=== PATIENT | male | born 1955 | race Caucasian/White ===

== ENCOUNTER 2022-09-17 16:07 | Emergency (ER) | payer MEDICARE, SELFPAY ==
[2022-09-17 16:13] VITALS: BP 143/87; PULSE 96; RESP 16; TEMP 36.7; O2SAT 99; BMI 203.6
--- NOTE | 2022-09-17 16:30 | XR_ITS ---
The [address] [address] Patient Name: BOBBI VINSON MRN: [id number] date: 1955 Sex: M Assigned Patient Location: ER Current Patient Location: ER Accession/Order Number: [id number] Exam Date: 09/17/2022 16:44 Report Date: 09/17/2022 17:11 At the request of: ESTRELLA NICHOLS Procedure: XR finger RT min 2V EXAM: XR finger RT min 2V HISTORY: chainsaw laceration COMPARISON: None. TECHNIQUE: 3 views FINDINGS: IMPRESSION: No visualized radiodense foreign body. No fracture, dislocation, subluxation or osseous lesion. Joint spaces are unremarkable for patient's age. Electronically authenticated by: VERONICA DALTON Date: 09/17/2022 17:11
--- NOTE | 2022-09-17 16:47 | ED_ITS ---
Documented by User: ROSALINO Santana 09/17/22 19:12 HPI - Extremity Injury (Upper) General Chief Complaint: Extremity Injury, Upper Stated Complaint: CUT FINGER W/ CHAINSAW Time Seen by Provider: 09/17/22 16:27 Source: patient Mode of arrival: walk-in Limitations: no limitations History of Present Illness HPI narrative: patient is a 67-year-old male who presents to the Emergency Room with concerns of laceration to the right index finger. Patient states he was using a small chainsaw when it struck his index finger over the PIP joint. Patient states this occurred around 10 AM and he presents to the Emergency Room 5-6 hours later's as the area continues to bleed. He is unsure of his last tetanus, he has a smaller abrasion to the left index finger. 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 Patient denies any numbness or tingling. He appears in no distress has been applying pressure to the wound since injury at 10 AM. Patient is right-hand dominant MD complaint: injury to: Reports right Other Extremity Injury: Right: fingers (index finger PIP joint dorsal aspect. ) Hand dominance: right Place: Reports home Severity: moderate (declines pain meds here, requesting rx sent to pharmacy) Relieving factors: Reports none Exacerbating factors: Reports movement of extremity Context: Reports laceration Treatments prior to arrival: Reports bandage Related Data Previous Rx's Medication Instructions Recorded cephalexin 500 mg capsule 500 mg PO TID 7 days #21 caps 09/17/22 nabumetone 1,000 mg tablet 1,000 mg PO BID for pain #14 tabs 09/18/22 (Relafen DS) Allergies Allergy/AdvReac Type Severity Reaction Status Date / Time No Known Drug Allergies Allergy Verified 09/17/22 16:17 Review of Systems ROS Constitutional Denies: fever or chills Eyes Denies: change in vision Ears, nose, mouth, and throat Denies: throat pain or neck pain Cardiovascular Denies: chest pain or palpitations Respiratory Reports: wheezing; Denies: shortness of breath Musculoskeletal Reports: extremity pain Exam Narrative Exam Narrative: Nurse's notes and vital signs reviewed. Patient is not hypoxic. General: The patient appears well and in no apparent distress. Patient is resting comfortably on cart. Skin: Warm, dry, no pallor noted. patient has a macerated laceration to the kassie aslazar aspect of the right index finger overlying the PIP joint. Positive continuous bruising noted. Head: Normocephalic, atraumatic Eye: Normal conjunctiva Respiratory: Patient is in no distress Musculoskeletal: The right wrist shows no obvious deformity. positive complex laceration to the right index finger overlying the PIP joint dorsal aspect. Gross examination shows extensor function intact at the DIP and PIP and MCP joints. Patient able to flex fully and to a fist without difficulty. Fingers bleeding noted. There was no significant swelling noted. The patient had full ROM despite pain. slight extensor tendon disrupted suspected or capsular bundle on visual inspection The patient had tenderness noted on the PIP joint of the index finger . The patient had no tenderness in the anatomical snuff box. The patient had no pain with axial loading of the thumb. Pulses are intact at brachial and radial 2+. There was no deficit at the elbow or shoulder. The patient has normal capil nataliya refill to all distal digits. The patient has no evidence of cyanosis or mottling. The patient is able to flex and extend all digits without difficulty. Neurological: A&O x4, normal sensory, normal motor Psychiatric: Cooperative Constitutional Vital Signs, click to edit/add: Last Vital Signs Temp 98.1 F 09/17/22 16:13 Pulse 96 H 09/17/22 16:13 Resp 16 09/17/22 16:13 BP 143/87 H 09/17/22 16:13 Pulse Ox 99 09/17/22 16:13 O2 Del Method Room Air 09/17/22 16:13 Course Vital Signs Vital signs: Vital Signs Temperature 98.1 F 09/17/22 16:13 Pulse Rate 96 H 09/17/22 16:13 Respiratory Rate 16 09/17/22 16:13 Blood Pressure 143/87 H 09/17/22 16:13 Pulse Oximetry 99 09/17/22 16:13 Oxygen Delivery Method Room Air 09/17/22 16:13 Temperature 98.1 F 09/17/22 16:13 Pulse Rate 96 H 09/17/22 16:13 Respiratory Rate 16 09/17/22 16:13 Blood Pressure 143/87 H 09/17/22 16:13 Pulse Oximetry 99 09/17/22 16:13 Oxygen Delivery Method Room Air 09/17/22 16:13 MDM - Extremity Injury (Upper) MDM Narrative Medical decision making narrative: Laceration repair: Done under sterile conditions. The use of Betadine was used to prep and clean the area. Local injection with lidocaine 1% was used, approximately 2 cc. The wound was irrigated copiously with normal saline. The wound complex with skin flap/ maceration was explored there was no evidence of foreign material. light stringing of either extensor tendon or retinaculum of capsule. no effect on distal phalanx extension noted. no visible bone. The laceration was approximated with 5-0 prolene. 10 simple interrupted sutures were placed. Patient tolerated the procedure well. The patient was neurovascularly intact post. the patient had bacitracin applied to the laceration and a dry sterile dressing was place. The patient will need to follow-up in the next 10-14 days for removal. Splint Application: The patient was placed in an aluminafoam splint. The patient was neurovascularly intact post application of the splint. Procedure: XR finger RT min 2V EXAM: XR finger RT min 2V HISTORY: chainsaw laceration COMPARISON: None. TECHNIQUE: 3 views FINDINGS: IMPRESSION: No visualized radiodense foreign body. No fracture, dislocation, subluxation or osseous lesion. Joint spaces are unremarkable for patient's age. Electronically authenticated by: VERONICA DALTON Date: 09/17/2022 17:11 patient's tetanus was up-to-date, he declined medication here requested pain pills for disposition to home which she'll take once he gets home as needed. We discussed importance of ice and elevation. Patient has a complex laceration ov erlying the joint capsule of his right index finger,. The history is Plavix use, diabetes and delayed presentation with injury from a chain saw around 10 AM today. His wound was discussed with Dr. Roach around 6 PM who is agreeable to see the patient on Tuesday for follow-up and wound recheck. We discussed at length at bedside with the patient regarding wound care patient should do a dressing change on Tuesday night, continue with point to finger to avoid flexion at the PIP joint. Patient agreeable to get antibiotics filled The patient is to followup with Orthopedics Dr. Roach in next 2-3 days or to return to the emergency department should any of the signs or symptoms worsen or new symptoms develop. Patient had questions answered. The patient agrees with the following Diagnosis and Treatment plan and the patient will be discharged home. Lab Data Labs: EXAM: XR finger RT min 2V HISTORY: chainsaw laceration COMPARISON: None. TECHNIQUE: 3 views FINDINGS: IMPRESSION: No visualized radiodense foreign body. No fracture, dislocation, subluxation or osseous lesion. Joint spaces are unremarkable for patient's age. Electronically authenticated by: VERONICA DALTON Date: 09/17/2022 17:11 Discharge Plan Discharge Chief Complaint: Extremity Injury, Upper Clinical Impression: Finger laceration Qualifiers: Encounter type: initial encounter Finger: index finger Damage to nail status: without damage Laterality: right Qualified Code(s): S61.210A - Laceration without foreign body of right index finger without damage to nail, initial encounter Patient Disposition: Home, Self-Care Time of Disposition Decision: 19:07 Condition: Good Mode of Transportation: Private Vehicle Prescriptions / Home Meds: New cephalexin 500 mg capsule 500 mg PO TID 7 Days Qty: 21 0RF Relafen DS 1,000 mg tablet 1,000 mg PO BID Qty: 14 0RF Instructions: Finger Laceration (ED) Additional Instructions: gently clean laceration once a day starting on Tuesday evening with 50-50 mix of hydrogen peroxide and water using a Q-tip, do not saturate the wound. Do not submerge the wound. Reapply gauze sterile dressing and finger splint. Do not lift push or pull with right hand pending follow-up with orthopedics contact Dr. Roach's office on Tuesday for same day appointment for evaluation Stand Alone Forms: Portal Instructions Referrals: DEMARCO FIELDS [Primary Care Provider] - 1 week Wan Roach MD [Physician] - As soon as possible Discharge Date/Time: 09/17/22 19:26 Documented by User: Ирина Zhao MD 09/20/22 07:58 HPI - Extremity Injury (Upper) General Chief Complaint: Extremity Injury, Upper Stated Complaint: CUT FINGER W/ CHAINSAW Time Seen by Provider: 09/17/22 16:27 Related Data Previous Rx's Medication Instructions Recorded cephalexin 500 mg capsule 500 mg PO TID 7 days #21 caps 09/17/22 nabumetone 1,000 mg tablet 1,000 mg PO BID for pain #14 tabs 09/18/22 (Relafen DS) Allergies Allergy/AdvReac Type Severity Reaction Status Date / Time No Known Drug Allergies Allergy Verified 09/17/22 16:17 Exam Constitutional Vital Signs, click to edit/add: Last Vital Signs Temp 98.1 F 09/17/22 16:13 Pulse 96 H 09/17/22 16:13 Resp 16 09/17/22 16:13 BP 143/87 H 09/17/22 16:13 Pulse Ox 99 09/17/22 16:13 O2 Del Method Room Air 09/17/22 16:13 Course Vital Signs Vital signs: Vital Signs Temperature 98.1 F 09/17/22 16:13 Pulse Rate 96 H 09/17/22 16:13 Respiratory Rate 16 09/17/22 16:13 Blood Pressure 143/87 H 09/17/22 16:13 Pulse Oximetry 99 09/17/22 16:13 Oxygen Delivery Method Room Air 09/17/22 16:13 Temperature 98.1 F 09/17/22 16:13 Pulse Rate 96 H 09/17/22 16:13 Respiratory Rate 16 09/17/22 16:13 Blood Pressure 143/87 H 09/17/22 16:13 Pulse Oximetry 99 09/17/22 16:13 Oxygen Delivery Method Room Air 09/17/22 16:13 MDM - Extremity Injury (Upper) MDM Narrative Medical decision making narrative: Laceration repair: Done under sterile conditions. The use of Betadine was used to prep and clean the area. Local injection with lidocaine 1% was used, approximately 2 cc. The wound was irrigated copiously with normal saline. The wound complex with skin flap/ maceration was explored there was no evidence of foreign material. light stringing of either extensor tendon or retinaculum of capsule. no effect on distal phalanx extension noted. no visible bone. The laceration was approximated with 5-0 prolene. 10 simple interrupted sutures were placed. Patient tolerated the procedure well. The patient was neurovascularly intact post. the patient had bacitracin applied to the laceration and a dry sterile dressing was place. The patient will need to follow-up in the next 10-14 days for removal. Splint Application: The patient was placed in an aluminafoam splint. The patient was neurovascularly intact post application of the splint. Procedure: XR finger RT min 2V EXAM: XR finger RT min 2V HISTORY: chainsaw laceration COMPARISON: None. TECHNIQUE: 3 views FINDINGS: IMPRESSION: No visualized radiodense foreign body. No fracture, dislocation, subluxation or osseous lesion. Joint spaces are unremarkable for patient's age. Electronically authenticated by: VERONICA DALTON Date: 09/17/2022 17:11 patient's tetanus was up-to-date, he declined medication here requested pain pills for disposition to home which she'll take once he gets home as needed. We discussed importance of ice and elevation. Patient has a complex laceration overlying the joint capsule of his right index finger,. The history is Plavix use, diabetes and delayed presentation with injury from a chain saw around 10 AM today. His wound was discussed with Dr. Roach around 6 PM who is agreeable to see the patient on Tuesday for follow-up and wound recheck. We discussed at length at bedside with the patient regarding wound care patient should do a dressing change on Tuesday night, continue with point to finger to avoid flexion at the PIP joint. Patient agreeable to get antibiotics filled The patient is to followup with Orthopedics Dr. Roach in next 2-3 days or to return to the emergency department should any of the signs or symptoms worsen or new symptoms develop. Patient had questions answered. The patient agrees with the following Diagnosis and Treatment plan and the patient will be discharged home. Attending physician attestation I have seen and evaluated this patient. I have reviewed the mid-level provider?s documentation medical decision making and treatment plan. I agree with the mid- level provider?s assessment, and plan. All procedures were done by mid-level provider under my supervision. Discharge Plan Discharge Chief Complaint: Extremity Injury, Upper Clinical Impression: Finger laceration Qualifiers: Encounter type: initial encounter Finger: index finger Damage to nail status: without damage Laterality: right Qualified Code(s): S61.210A - Laceration without foreign body of right index finger without damage to nail, initial encounter Patient Disposition: Home, Self-Care Time of Disposition Decision: 19:07 Condition: Good Mode of Transportation: Private Vehicle Prescriptions / Home Meds: New cephalexin 500 mg capsule 500 mg PO TID 7 Days Qty: 21 0RF Relafen DS 1,000 mg tablet 1,000 mg PO BID Qty: 14 0RF Instructions: Finger Laceration (ED) Additional Instructions: gently clean laceration once a day starting on Tuesday evening with 50-50 mix of hydrogen peroxide and water using a Q-tip, do not saturate the wound. Do not submerge the wound. Reapply gauze sterile dressing and finger splint. Do not lift push or pull with right hand pending follow-up with orthopedics contact Dr. Roach's office on Tuesday for same day appointment for evaluation Stand Alone Forms: Portal Instructions Referrals: DEMARCO FIELDS [Primary Care Provider] - 1 week Wan Roach MD [Physician] - As soon as possible Discharge Date/Time: 09/17/22 19:26
[2022-09-17] MEDS: ADACEL DIPH,PERTUSS(ACELL),TET VAC/PF 0.5 ML ADULT SYRINGE IM (18:08)
[2022-09-17] MEDS: HYDROCODONE/ACETAMINOPHEN 5-325 MG TABLET 2 TAB PO (18:09)
[2022-09-17] MEDS: CEPHALEXIN 500 MG CAPSULE PO (18:09)
== END 2022-09-17 19:26 | disposition home or self-care (01) ==
PROVIDERS: Emergency Provider Emergency Medicine; PCP Family Medicine
DX: S61.210A Laceration without foreign body of right index finger without damage to nail, initial encounter (principal); Z23 Encounter for immunization; W29.3XXA Contact with powered garden and outdoor hand tools and machinery, initial encounter; Z79.82 Long term (current) use of aspirin; Z79.02 Long term (current) use of antithrombotics/antiplatelets
CPT/HCPCS: 12001; 73140; 90471; 90715; 99284